=== PATIENT | male | born 1980 | race Caucasian/White ===

== ENCOUNTER 2017-06-21 12:06 | Emergency (ER) | payer MEDICAID ==
[~2017-06-21 12:06] MED LIST: METOPROLOL SUCCINATE XR 100 MG TAB PO SCH
[2017-06-21 12:11] VITALS: RESP 18; O2SAT 95
--- NOTE | 2017-06-21 12:21 | CPEKG ---
Heart Rate: 105 RR Interval: 571 P-R Interval: 156 QRSD Interval: 74 QT Interval: 344 QTC Interval: 455 P [place]: 38 QRS [place]: 40 T Wave [place]: 33 EKG Severity - OTHERWISE NORMAL ECG - EKG Impression: SINUS TACHYCARDIA EKG Impression: Unchanged from previous Electronically Signed By: Santosh Vasquez 21-Jun-2017 13:17:44
[2017-06-21] MEDS ORDERED: chlordiazePOXIDE 25 MG CAP PO ONE (13:21)
[2017-06-21] MEDS ORDERED: METOPROLOL SUCCINATE XR 100 MG TAB PO ONE (13:21)
--- NOTE | 2017-06-21 13:24 | EDPHY ---
H & P Stated Complaint: cp/has been off metoprolol while at [facility] for detox Time Seen by Provider: 06/21/17 13:14 HPI/ROS: CHIEF COMPLAINT: Withdrawal, med refill HISTORY OF PRESENT ILLNESS: The patient is a 36-year-old alcoholic man with a history of bipolar disease as well as hypertension and mitral valve prolapse. He is currently at the rehab facility. He states that he has been without his medications for the last 3 days because he lost them as well as his cell phone and backpack. He is concerned because he typically takes metoprolol 100 mg XL daily. He plans to return to the recovery Center from here but is asking for medication refills. He denies chest pain or shortness of breath. He denies palpitations. He is intermittently tachycardic and is tremulous. REVIEW OF SYSTEMS: Constitutional: denies: chills, fever, recent illness, recent injury EENTM: denies: blurred vision, double vision, nose congestion Respiratory: denies: cough, shortness of breath Cardiac: See HPI Gastrointestinal/Abdominal: denies: abdominal pain, diarrhea, nausea, vomiting, blood streaked stools Genitourinary: denies: dysuria, frequency, hematuria, pain Musculoskeletal: denies: joint pain, muscle pain Skin: denies: lesions, rash, jaundice, bruising Neurological: denies: headache, numbness, paresthesia, tingling, dizziness, weakness Hematologic/Lymphatic: denies: blood clots, easy bleeding, easy bruising Immunologic/allergic: denies: HIV/AIDS, transplant EXAM: GENERAL: Mild tremors HEAD: Atraumatic, normocephalic. EYES: Pupils equal round and reactive to light, extraocular movements intact, sclera anicteric, conjunctiva are normal. ENT: TMs normal, nares patent, oropharynx clear without exudates. Moist mucous membranes. NECK: Normal range of motion, supple without lymphadenopathy or JVD. LUNGS: Breath sounds clear to auscultation bilaterally and equal. No wheezes rales or rhonchi. HEART: Slightly tachycardic rate intermittent Regular rate and rhythm without murmurs, rubs or gallops. ABDOMEN: Soft, nontender, normoactive bowel sounds. No guarding, no rebound. No masses appreciated. BACK: No CVA tenderness, no spinal tenderness, step-offs or deformities EXTREMITIES: Normal range of motion, no pitting or edema. No clubbing or cyanosis. NEUROLOGICAL: Cranial nerves II through XII grossly intact. Normal speech, normal gait. 5/5 strength, normal movement in all extremities, normal sensation PSYCH: Normal mood, normal affect. SKIN: Warm, dry, normal turgor, no visible rashes or lesions. Source: Patient Exam Limitations: No limitations - Personal History Current Tetanus/Diphtheria Vaccine: Yes - Medical/Surgical History Hx Asthma: No Hx Chronic Respiratory Disease: No Hx Diabetes: No Hx Cardiac Disease: No Hx Renal Disease: No Hx Cirrhosis: No Hx Alcoholism: Yes Hx HIV/AIDS: No Hx Splenectomy or Spleen Trauma: No Other PMH: etoh/htn/mitral valve - Family History Significant Family History: No pertinent family hx - Social History Smoking Status: Current every day smoker Alcohol Use: Heavy Drug Use: Marijuana Constitutional: Initial Vital Signs Temperature (C) 36.7 C 06/21/17 12:08 Heart Rate 118 H 06/21/17 12:08 Respiratory Rate 18 06/21/17 12:08 Blood Pressure 145/100 H 06/21/17 12:08 O2 Sat (%) 95 06/21/17 12:08 O2 Delivery Mode Room Air Allergies/Adverse Reactions: bupropion [From Wellbutrin] Allergy (Verified 06/21/17 12:07) tramadol Allergy (Verified 06/21/17 12:07) zolpidem [From Ambien] Allergy (Verified 06/21/17 12:07) Home Medications: Medication Instructions Recorded Metoprolol Succinate 06/21/17 Metoprolol Succinate Xr [Toprol Xl 100 mg PO DAILY #3 tab.sr 06/21/17 100 mg (*)] Medical Decision Making ED Course/Re-evaluation: I will treat the patient with metoprolol and Librium. He is asking for a short prescription of metoprolol to get him through until Saturday when he can go to the [facility] to get a refill. I do feel comfortable with this. I will not provide him a long prescription because he has a history of overdose on metoprolol. I will also send him with a Librium prepack to help with withdrawal symptoms while he is at rehab. 2:05 p.m. the patient states that he is feeling completely better. His heart rate has normalized. He is no longer tremulous. He is eager to get back to the [facility]. We discussed indications for returning. Differential Diagnosis: Partial list of the Differential diagnosis considered include but were not limited to; alcohol withdrawal, and alcoholism, anxiety, hypertension and although unlikely based on the history and physical exam, I also considered acute coronary disease, dissection, PE, infection. I discussed these differential diagnoses and the plan with the patient as well as the usual and expected course. The patient understands that the diagnosis is provisional and that in medicine we are not always correct and that further workup is often warranted. Usual and customary warnings were given. All of the patient's questions were answered. The patient was instructed to return to the emergency department should the symptoms at all worsen or return, otherwise to followup with the physician as we discussed. - Data Points Medications Given: Discontinued Medications Chlordiazepoxide HCl (Librium) 50 mg PO EDNOW ONE Stop: 06/21/17 13:22 Last Admin: 06/21/17 13:35 Dose: 50 mg Metoprolol Succinate (Toprol Xl) 100 mg PO EDNOW ONE Stop: 06/21/17 13:22 Last Admin: 06/21/17 13:57 Dose: 100 mg Ondansetron HCl (Zofran Odt) 4 mg PO EDNOW ONE Stop: 06/21/17 13:59 Last Admin: 06/21/17 13:58 Dose: 4 mg Departure - Departure Disposition: Home, Routine, Self-Care Clinical Impression: Alcohol withdrawal Qualifiers: Complication of substance-induced condition: with unspecified complication Qualified Code(s): F10.239 - Alcohol dependence with withdrawal, unspecified Hypertension Qualifiers: Hypertension type: essential hypertension Qualified Code(s): I10 - Essential ( primary) hypertension Condition: Fair Instructions: Chlordiazepoxide (By mouth), Alcohol Withdrawal (ED), Hypertension (ED) Referrals: [facility] [Other] - As per Instructions Prescriptions: Metoprolol Succinate Xr [Toprol Xl 100 mg (*)] 100 mg PO DAILY #3 tab.sr
[2017-06-21] MEDS ORDERED: ONDANSETRON DISINTEGRATING 4 MG TAB ONE (13:56)
[2017-06-21] MEDS ORDERED: ONDANSETRON DISINTEGRATING 4 MG TAB PO ONE (13:58)
[2017-06-21 14:17] VITALS: BP 137/99; PULSE 87; TEMP 97.9
== END 2017-06-21 14:44 | disposition home or self-care (01) ==
DX: F10.239 Alcohol dependence with withdrawal, unspecified (principal); I10 Essential (primary) hypertension; F17.200 Nicotine dependence, unspecified, uncomplicated